=== PATIENT | female | born 1995 | race Two or more races ===

== ENCOUNTER 2020-02-22 13:25 | Emergency (ER) | payer MEDICAID, OTHER ==
[~2020-02-22] VITALS: Ht 160 cm; Wt 71.2 kg
[2020-02-22 13:30] VITALS: BP 118/77
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
== END 2020-02-22 15:28 | disposition home or self-care (01) ==
LOC: ED 14:18
DX: S39.012A Strain of muscle, fascia and tendon of lower back, initial encounter (principal); M54.2 Cervicalgia; V89.2XXA Person injured in unspecified motor-vehicle accident, traffic, initial encounter; Y93.89 Activity, other specified; Y92.89 Other specified places as the place of occurrence of the external cause; Y99.8 Other external cause status
CPT/HCPCS: 72100; 99283

== ENCOUNTER 2020-04-02 10:36 | Outpatient (CLI) | payer MEDICAID | END 2020-04-02 23:59 | disposition home or self-care (01) | LOC: RAD 10:36 | PROVIDERS: ATTEND Radiology Diagnostic Radiology | DX: M48.37 Traumatic spondylopathy, lumbosacral region (principal) | CPT/HCPCS: 72110 ==